=== PATIENT | female | born 1950 ===

== ENCOUNTER 2023-10-05 05:56 | Day surgery (SDC) | payer OTHER ==
[2023-10-05] MEDS: NA CHLORIDE 0.9% 1,000 ML ONE (05:56)
[2023-10-05] MEDS ORDERED: BUPIVACAINE 0.25% PF 30 ML VIAL ONE (06:34)
[2023-10-05] MEDS ORDERED: MIDAZOLAM HCL 2 MG/2 ML INJ ONE (06:36)
[2023-10-05] MEDS ORDERED: KETOROLAC 30 MG/ML INJ ONE (06:36)
[2023-10-05] MEDS ORDERED: LIDOCAINE 2% MPF 5 ML VIAL ONE (06:36)
[2023-10-05] MEDS ORDERED: FENTANYL CITR 100 MCG/2 ML ONE (06:36)
[2023-10-05] MEDS ORDERED: dexAMETHasone 4 MG/ML VIAL ONE (06:36)
[2023-10-05] MEDS ORDERED: propofoL 200 MG/20 ML VIAL IV ONE (06:36)
[2023-10-05] MEDS ORDERED: ROCURONIUM 50 MG/5 ML VIAL IV ONE (06:36)
[2023-10-05] MEDS ORDERED: ONDANSETRON 4 MG/2 ML VIAL ONE (06:36)
[2023-10-05] MEDS ORDERED: SUCCINYLCHOLINE 20 MG/ML (10 ML) IV ONE (06:45)
[2023-10-05] MEDS: CEFAZOLIN SODIUM 2 GM/VIAL ONE (07:15)
[2023-10-05] MEDS ORDERED: EPHEDRINE SULF 50 MG/ML VIAL ONE ×2 (07:29→07:44)
[2023-10-05] MEDS: LIDOCAINE HCL/EPINEPHRINE 20 ML MDV ONE (07:52)
[2023-10-05] MEDS ORDERED: NS 0.9% VIAL 40 ML ONE (08:05)
[2023-10-05] MEDS: ALBUMIN HUM 5% 500 ML IV ONE (08:10)
[2023-10-05] MEDS ORDERED: Phenylephrine HCl 10 MG/ML 1 ML VIAL ONE (08:12)
[2023-10-05] MEDS ORDERED: NS 0.9% VIAL 10 ML ONE (08:40)
[2023-10-05] MEDS ORDERED: DIPHENHYDRAMINE 50 MG/ML VIAL ONE (08:41)
[2023-10-05] MEDS ORDERED: NA CHLORIDE 0.9% 1,000 ML ONE (08:57)
--- NOTE | 2023-10-05 09:58 | RAD REPORT ---
EXAM DESCRIPTION: RAD - Fluoroscopy <1 Hour - 10/05/2023 9:47 am CLINICAL HISTORY: [facility] MOD COMPARISON: No comparisons FINDINGS: Fluoroscopy time: 0.9 minutes
[2023-10-05 11:04] VITALS: BP 121/60; TEMP 97.3; O2SAT 95
--- NOTE | 2023-10-05 11:09 | OP ---
Date of Procedure: 10/05/2023 Surgeon: Phuong Ramos MD Preoperative Diagnoses: Urge urinary incontinence and fecal incontinence. Postoperative Diagnoses: Urge urinary incontinence and fecal incontinence. Procedures Performed: 1.Complete InterStim system implantation with incision and implantation of tined quadripolar lead el ectrodes into S3 foramina under fluoroscopic guidance for needle placement, subcutaneous implantation of sacral nerve neurostimulator. 2.Electronic analysis and programming. Anesthesia: General endotracheal. No specimens or complications. Estimated Blood Loss: Minimal. Condition: Stable. Findings: Left S3 foramen was used for lead positioning and then the buttock pocket on the right michele e. All 4 leads had a good response to toes and Trevon. On the right S3, the response on Trevon wa s nonexistent with a minimal toe response. Indications: The patient is a 73-year-old, who has refractory urge urinary incontinence, treated in the past with medications. She also has significant fecal incontinence. We counseled her on third l ine therapies including Botox and neurostimulation. She went through in-office percutaneous nerve ev aluation with greater than 50% improvement in both her urge urinary incontinence symptoms as well as fecal incontinence was somewhat better. She had medical clearance from Dr. Wayne who is her primary care provider and she was consented for stage I InterStim after the leads were removed in a week. Procedure In Detail: In the preoperative area today, her consent was re-verified. Her was p resent at bedside. Q and A were done to their satisfaction. Then, she was taken back to OR. She was placed in a supine position on the bed itself. General anesthesia was administered. She had hypotension and this was monitored and improved spontaneously with observation, likely vasovagal res ponse from induction of anesthesia. Once she was stabilized, then she was placed in a prone position using the OR protocol. Pillows were placed under her lower abdomen to flatten the sacrum and under her shins to allow the toes to dangle freely. The patient was prepped and draped in a sterile fashio n using Betadine. C-arm was draped and moved into AP position for fluoroscopic mapping of the sacral region. Outline of the sacrum, SI joint, sciatic notches, medial foraminal borders, and sacral fora david were mapped. The C-arm was then moved to the lateral position to image the area from the sacral promontory to the coccyx. Local injection of 1% lidocaine with epinephrine was injected after the surface markings were made at 9 to 12 cm at 1 cm increments and 1.5 and 2 cm out on all the levels. After local injection was giv en on both sides, a firm needle was introduced at 11 cm above the coccyx, 2 cm lateral on the right s karley first. Foramen was entered lateral to medial. However, there was no response of toes and Bellow s, so went on the opposite side and after optimal positioning of the needle, there was a good respons e of toes and Trevon; however, the patient wanted the pocket on the right side and my general practi ce is to keep the lead and the pocket on the same side, so I went ahead and removed the needle stylet . A bidirectional guide was placed and confirmed fluoroscopically. The foramen needle was then alphonso eric. The incision was made peripherally to the directional guide through the fascial layer and the l ead introducer sheath with dilator was placed over the bidirectional guide and guided into the forame n to ensure that the radiopaque marker of the lead introducer did not extend beyond the anterior edge of the sacrum. The dilator was unlocked and removed along with the bidirectional guide. The lead w as then placed through the introducer sheath to the first white line. Position was checked. Lead wa s then introduced until 3 electrodes were visible below the sacrum and it was curving appropriately. On testing, there was mild toe response on all of the leads; however, no Trevon noted, so the lead was removed and repositioned 2 other times with completely unsatisfactory Trevon response. I decided to go on the opposite side where the needle positioning was already in place. The stylet w as removed. A directional guide was placed and confirmed fluoroscopically. The foramen needle was t hen removed. An incision was made peripherally to the bidirectional guide through the fascial layer. The lead introducer sheath from the opposite side was removed and it was used to place on top of th is with the dilator, and the dilator was introduced, so the radiopaque marker did not extend beyond a nterior to the sacrum on the patient's left side. The dilator was unlocked and removed along with th e guide. Then, the lead was introduced and positioned in an appropriate manner. The curvature was a ppropriate and the last lead was above the anterior edge of the sacrum. Here, the testing was perfor med. There was an excellent response of toes and Trevon on all 4 leads. After satisfactory positio dana was confirmed with fluoroscopy on both the AP and lateral views, the tines were deployed by pull ing out the dilator. Further incision was made in the subcutaneous tissues posterior to the iliac crest, lateral to the sa jaycee on the patient's right buttock. Blunt dissection was continued until the gluteal fascia was karley ntified and hemostasis was secured. Sufficient pocket was created for the neurostimulator using the Bovie. Tunneling tool was introduced with a straw from the lead exit site subcutaneously to the inci sed pocket site. The tunneling tool was removed and the lead was fed through the straw and pulled ou t to the pocket site. The lead was cleansed off bodily fluids and dried. The lead was inserted into the InterStim II neurostimulator head and the metal bands were aligned and the lead tip was clearly with the distal portion of the header. Then, the hex wrench was used to tighten the set screw. The neurostimulator was placed in a subcutaneous pocket with the etched identification side placed upward s and there was no excessive bleed here in this case. The programming head was placed over the impla nted neurostimulator in a sterile cover to ensure adequate lead connection and the parameters were wi thin normal limits. Impedances were confirmed to be within normal limits. Wounds were irrigated with antibiotic solution and water and closed with the help of chromic for subc utaneous sutures and 5-0 Monocryl for subcuticular continuous running sutures. Lead sides were both closed. Counts were correct. Steri-Strips and 4x4s were placed over the incisions. EBL was minimal . The patient was transferred to the recovery room in satisfactory condition and monitored, her bloo d pressure and pulse were stable. No other intervention had to be done. Using the clinician program melonie, the generator was programmed and settings entered into the chart. She will follow up in 3 weeks in the office. Programming will be followed on and her response over the course of the next few days using the engineering and scientific programmer. SRIKANTH/WILMER Voice ID: [id number] Report ID: [id number]
== END 2023-10-05 10:35 | disposition home or self-care (01) ==
LOC: OR 05:56
PROVIDERS: ATTEND Obstetrics & Gynecology
PROC: 0JH73BZ Insertion of Single Array Stimulator Generator into Back Subcutaneous Tissue and Fascia, Percutaneous Approach (ICD-10-PCS; 2023-10-05)
PROC: 01HY3MZ Insertion of Neurostimulator Lead into Peripheral Nerve, Percutaneous Approach (ICD-10-PCS; principal; 2023-10-05 07:00)
DX: N39.41 Urge incontinence (principal); R15.9 Full incontinence of feces; E11.9 Type 2 diabetes mellitus without complications; E78.00 Pure hypercholesterolemia, unspecified; I10 Essential (primary) hypertension; M79.7 Fibromyalgia
CPT/HCPCS: 82947 ×2; 64561; 64590; P9045; A4216 ×2; J2704; J1100; J1200; J2371; J2001; J2250; J3010; J2405; J7030 ×2; C1778; C1767; 76000